=== PATIENT | male | born 1965 | race Caucasian/White ===

== ENCOUNTER 2022-04-13 14:20 | Emergency (ER) | payer OTHER ==
[2022-04-13] MEDS ORDERED: NORCO 5-325 TA1 EACH PO (17:41)
== END 2022-04-13 18:25 | disposition home or self-care (01) ==
LOC: FER 14:20
DX: S83.421A Sprain of lateral collateral ligament of right knee, initial encounter (principal); Z28.310 Unvaccinated for COVID-19; X50.1XXA Overexertion from prolonged static or awkward postures, initial encounter; Y92.69 Other specified industrial and construction area as the place of occurrence of the external cause; Y99.0 Civilian activity done for income or pay
CPT/HCPCS: 73560